=== PATIENT | female | born 1940 | race American Indian/Alaskan Native ===

== ENCOUNTER 2019-03-26 06:44 | Outpatient (CLI) | payer MEDICARE, OTHER | END 2019-03-26 06:45 | disposition home or self-care (01) | LOC: CARDIO 06:44 ==

== ENCOUNTER 2019-04-02 06:50 | Outpatient (CLI) | payer MEDICARE, OTHER | END 2019-04-02 06:51 | disposition home or self-care (01) | LOC: CARDIO 06:50 | DX: E11.9 Type 2 diabetes mellitus without complications (principal); I25.10 Atherosclerotic heart disease of native coronary artery without angina pectoris ==